=== PATIENT | male | born 1955 | race American Indian/Alaskan Native ===

== ENCOUNTER 2016-09-20 12:43 | Emergency (ER) | payer OTHER ==
[2016-09-20 13:22] LABS: Eosinophils % (Auto) 2.6 % (0.0-4.3); Hematocrit 40.4 % (35.5-45.6); Hemoglobin 13.3 gm/dl (11.8-15.2); Mean Corpuscular HGB Conc 33 % (32-34); Mean Corpuscular Hemoglobin 31 pg (28-32); Mean Corpuscular Volume 95 fl (84-94); Platelet Count 183 K/mm3 (140-440); Red Blood Count 4.27 M/mm3 (3.65-5.03); White Blood Count 5.8 K/mm3 (4.5-11.0)
[2016-09-20 13:44] LABS: Anion Gap 18 mmol/L; BUN/Creatinine Ratio 17.14; Blood Urea Nitrogen 12 mg/dL (9-20); Calcium 9.1 mg/dL (8.4-10.2); Carbon Dioxide 25 mmol/L (22-30); Glucose 158 mg/dL (75-100); Sodium 140 mmol/L (137-145)
[2016-09-20] MEDS ORDERED: TESSALON PERLES PO ONE (20:46)
[2016-09-20] MEDS ORDERED: MUCINEX ER PO ONE (20:46)
[2016-09-20] MEDS ORDERED: TORADOL IV ONE (21:14)
--- NOTE | 2016-09-20 22:11 | Emergency Department Report ---
HPI - General Chief Complaint: Chest Pain Time Seen by Provider: 09/20/16 20:46 - HPI HPI: The patient is a 61-year-old male presents for evaluation of chest pain. The patient reports chest pain for the past 3 weeks, exacerbated with coughing, moderate in severity, aching in quality, and associated with a nonproductive cough. The patient denies fever, neck pain, parasthesias, dyspnea, hemoptysis, palpitations, dizziness, syncope, unilateral leg swelling, calf muscle pain. Patient also denies cocaine or other stimulant use, history of DVT or PE, recent immobilization, or history of cancer. ED Past Medical Hx - Past Medical History Previous Medical History?: No - Surgical History Hx Appendectomy: Yes - Social History Smoking Status: Never Smoker Substance Use Type: None - Medications Home Medications: Home Medications Medication Instructions Recorded Confirmed Last Taken Type Benzonatate [Tessalon Perles] 100 mg PO Q8HR #14 capsule 09/20/16 Unknown Rx Cyclobenzaprine HCl [Flexeril 5 MG 5 mg PO Q8HR PRN #15 tab 09/20/16 Unknown Rx TAB] Doxycycline Hyclate [Doxycycline 100 mg PO Q12HR #10 tab 09/20/16 Unknown Rx Hyclate TAB] ED Review of Systems ROS: Stated complaint: CP/DIZZINESS Other details as noted in HPI Constitutional: denies: fever ENT: denies: throat or neck pain Respiratory: denies: cough, shortness of breath Cardiovascular: reports chest pain Endocrine: denies unexplained weight loss or gain Gastrointestinal: denies: abdominal pain, nausea Genitourinary: denies: dysuria Musculoskeletal: denies: leg swelling Skin: denies: rash Neurological: denies: headache Hematological/Lymphatic: denies: easy bleeding or easy bruising Psych: denies sadness or hopelessness Physical Exam - Physical Exam Vital Signs: Vital Signs 09/20/16 09/20/16 09/20/16 12:58 19:33 21:38 Temperature 97 F L 97.5 F L Pulse Rate 99 H 65 Respiratory 18 16 14 Rate Blood Pressure 137/79 134/80 Blood Pressure [Right] O2 Sat by Pulse 99 100 Oximetry 09/20/16 21:43 Temperature 98.1 F Pulse Rate 60 Respiratory 10 L Rate Blood Pressure Blood Pressure 134/89 [Right] O2 Sat by Pulse 98 Oximetry Physical Exam: General: well-nourished, well-developed, no acute distress Head: Normocephalic, atraumatic Eyes: normal sclera ENT: Mucous membranes are pale and dry, bilateral nasal congestion present Neck: No neck stiffness, no cervical adenopathy Respiratory: Breath sounds equal bilaterally, no wheezing, rales, or rhonchi Cardio: S1 and S2 present, no murmurs, rubs, gallops, capillary refill is delayed Abdomen: Normoactive bowel sounds, soft abdomen, no rigidity, no guarding or rebound tenderness Chest WALL/Back: No tenderness to palpation of the chest wall, no CVA tenderness with percussion Musc: No pitting edema Skin: No rash Neuro: no facial drooping, normal speech Psych: Normal affect ED Course Vital Signs 09/20/16 09/20/16 09/20/16 12:58 19:33 21:38 Temperature 97 F L 97.5 F L Pulse Rate 99 H 65 Respiratory 18 16 14 Rate Blood Pressure 137/79 134/80 Blood Pressure [Right] O2 Sat by Pulse 99 100 Oximetry 09/20/16 21:43 Temperature 98.1 F Pulse Rate 60 Respiratory 10 L Rate Blood Pressure Blood Pressure 134/89 [Right] O2 Sat by Pulse 98 Oximetry ED Medical Decision Making - Lab Data Result diagrams: 09/20/16 13:06 09/20/16 13:06 - Medical Decision Making The patient was seen and examined by myself. The patient is placed on a site monitor and continuous pulse ox. On initial evaluation, the patient was found to be in no distress. EKG was negative for findings suggestive of acute cardiac infarct. Labs and imaging are obtained. The patient is given IV Toradol for his pain, Tessalon Perles for cough, and Mucinex for congestion. Chest x-ray is negative for pneumothorax, focal consolidation, pulmonary vascular congestion, pleural effusion, or other obvious acute cardiopulmonary disease process. Lab results were non-concerning including levels of troponin, WBC, hemoglobin, hematocrit, electrolytes, renal function. The patient was reevaluated and reported that their symptoms were markedly improved. As the patient has a NIKOLE risk score less than 2, and a well's score less than 2, the patient is at low risk of ACS or pulmonary emboli etiology of their symptoms. The patient is stable for discharge with outpatient follow-up. The patient is given follow-up and return instructions. The patient expressed understanding and agreed with the plan. The patient is discharged in stable condition. Critical care attestation.: If time is entered above; I have spent that time in minutes in the direct care of this critically ill patient, excluding procedure time. ED Disposition Clinical Impression: Acute chest pain, Acute upper respiratory infection Disposition: DISCHARGED TO HOME OR SELFCARE Is pt being admited?: No Does the pt Need Aspirin: No Condition: Stable Instructions: Chest Pain (ED), Upper Respiratory Infection (ED) Prescriptions: Benzonatate [Tessalon Perles] 100 mg PO Q8HR #14 capsule Cyclobenzaprine HCl [Flexeril 5 MG TAB] 5 mg PO Q8HR PRN #15 tab PRN Reason: Pain Doxycycline Hyclate [Doxycycline Hyclate TAB] 100 mg PO Q12HR #10 tab Referrals: PRIMARY CARE, [Primary Care Provider] - 3-5 Days Time of Disposition: 22:08
[2016-09-21 00:38] VITALS: BP 134/76
--- NOTE | 2016-09-21 09:21 | XRay Report ---
Single view chest: History: Chest pain. Findings: Normal S. silhouette trachea is midline. No consolidation, pneumothorax or pleural effusion. Impression: No acute cardiopulmonary findings.
== END 2016-09-21 00:37 | disposition home or self-care (01) ==
LOC: ED 12:43
DX: J06.9 Acute upper respiratory infection, unspecified (principal); R07.9 Chest pain, unspecified
CPT/HCPCS: 36415; 71010; 80048; 84484; 85025; 93005; 93010; 96374; 99285; J1885

== ENCOUNTER 2016-09-25 20:24 | Emergency (ER) | payer OTHER ==
[2016-09-26] MEDS ORDERED: TETRACAINE 0.5% OU PRN (01:18)
[2016-09-26] MEDS ORDERED: FUL-GLO OP ONE (01:18)
--- NOTE | 2016-09-26 01:24 | Emergency Department Report ---
Eye Injury/Foreign Body - HPI Duration: 2 Days Eye Location: Left Severity: None Tetanus Status: Up to Date Eye Symptoms: Eye Pain: No, Blurred Vision: No, Eye Redness: No, Grinding/ Hammering Metal: No, Used Eye Protection: No, Contact Lens Use: No, Recalls Injury: No, Photophobia: No Other History: Physical 61-year-old that presents with left eye subconjunctival hematoma. Patient stated has been here last Friday and was prescribed aspirin and antibiotics. Patient is concerned that aspirin antibiotics as caused this. Patient also agrees to coughing. Patient denies any trauma to the eye. Denies any visual changes. Denies blurry vision. Denies itching or discharge. Denies irritation to the eye. Patient denies any shortness of breath or chest pain. Patient does not seem toxic or ill appearance. No signs of distress noted. Denies any drug allergies. ED Review of Systems ROS: Stated complaint: BACK PAIN/EYE REDNESS Other details as noted in HPI Constitutional: denies: chills, fever Eyes: other (left eye subconjunctival hematoma). denies: eye pain, eye discharge, vision change ENT: denies: ear pain, throat pain Respiratory: denies: cough, shortness of breath, wheezing Cardiovascular: denies: chest pain, palpitations Endocrine: no symptoms reported Gastrointestinal: denies: abdominal pain, nausea, diarrhea Genitourinary: denies: urgency, dysuria Musculoskeletal: denies: back pain, joint swelling, arthralgia Skin: denies: rash, lesions Neurological: denies: headache, weakness, paresthesias Psychiatric: denies: anxiety, depression Hematological/Lymphatic: denies: easy bleeding, easy bruising ED Past Medical Hx - Past Medical History Previous Medical History?: Yes Additional medical history: CHEST WALL MUSCLE - Surgical History Past Surgical History?: Yes Hx Appendectomy: Yes - Social History Smoking Status: Never Smoker Substance Use Type: None - Medications Home Medications: Home Medications Medication Instructions Recorded Confirmed Last Taken Type Benzonatate [Tessalon Perles] 100 mg PO Q8HR #14 capsule 09/20/16 Unknown Rx Cyclobenzaprine HCl [Flexeril 5 MG 5 mg PO Q8HR PRN #15 tab 09/20/16 Unknown Rx TAB] Doxycycline Hyclate [Doxycycline 100 mg PO Q12HR #10 tab 09/20/16 Unknown Rx Hyclate TAB] Eye Injury Exam - Exam General: Vital signs noted. No distress. Alert and acting appropriately. Left eye subconjunctival hematoma. No discharge, drainage. No pus or crusting noted. No pain. Normal pupils. PERRLA. Normal eye movement. No signs of strabismus. - Visual Acuity Bilateral Vision Acuity Degree: 20/13 Eye Exam: Neither Injection, Neither Chemosis, Neither Abnormal Pupil, Neither EOMI, Neither Eye Foreign Body, Neither Lid Foreign Body, Neither Mucous Discharge, Neither Purulent Discharge, Neither Fluorescein Uptake, Neither Fluorescein Uptake (slit lamp), Neither Cell/Flare (slit lamp), Neither Corneal Edema, Neither Photophobia Right Vision Acuity Degree: 20/13 Eye Exam: Neither Injection, Neither Chemosis, Neither Abnormal Pupil, Neither EOMI, Neither Eye Foreign Body, Neither Lid Foreign Body, Neither Mucous Discharge, Neither Purulent Discharge, Neither Fluorescein Uptake, Neither Fluorescein Uptake (slit lamp), Neither Cell/Flare (slit lamp), Neither Corneal Edema, Neither Photophobia Left Vision Acuity Degree: 20/20 ED Course Vital Signs 09/25/16 21:41 Temperature 97.6 F Pulse Rate 92 H Respiratory 18 Rate Blood Pressure 138/90 O2 Sat by Pulse 100 Oximetry ED Medical Decision Making - Medical Decision Making Ed course: 61-year-old male that presents with left eye subconjunctival hematoma 1- under Wood's lamp, I performed an assessment of the corneal for any seed cleaner abrasion. Negative for coronary abrasion left eye noted. 2- patient received tetracaine drops to the left eye during the exam with fluorescein strip. 3- I instructed to the patient that this is a subconjunctival hematoma Critical care attestation.: If time is entered above; I have spent that time in minutes in the direct care of this critically ill patient, excluding procedure time. ED Disposition Clinical Impression: Subconjunctival hematoma Qualifiers: Laterality: left Qualified Code(s): H11.32 - Conjunctival hemorrhage, left eye Disposition: DISCHARGED TO HOME OR SELFCARE Is pt being admited?: No Does the pt Need Aspirin: No Condition: Stable Additional Instructions: Please follow-up with your primary-care doctor in 3-5 days. If symptoms worsen report back to emergency room. Referrals: [facility] [Outside] - 3-5 Days [facility] [Outside] - 3-5 Days PRIMARY CARE, [Primary Care Provider] - 3-5 Days Forms: Work/School Release Form(ED)
[2016-09-26 01:35] VITALS: BP 129/82
== END 2016-09-26 01:40 | disposition home or self-care (01) ==
LOC: ED 20:24
DX: H11.32 Conjunctival hemorrhage, left eye (principal)
CPT/HCPCS: 99283

== ENCOUNTER 2020-01-20 12:04 | Emergency (ER) | payer OTHER ==
[2020-01-20 12:59] VITALS: BP 110/83
--- NOTE | 2020-01-20 14:52 | Emergency Department Report ---
Chief Complaint: Shoulder Injury Stated Complaint: POSS POISON Time Seen by Provider: 01/20/20 14:48 - HPI History of Present Illness: This is a 64-year-old male who presents the ED stating that he may have accidentally drank some bleach on his water Friday for 5 days ago. Patient states he just tasted a little bit of bleach in his water but has not had any other issues since then. Patient denies any vomiting, diarrhea, abdominal pain. Patient states he has had normal bowel movements, normal urine no other problems. Patient presents here today because he was thinking he can get some blood work - ROS Review of Systems: As noted in HPI - Exam Vital Signs: Vital Signs 01/20/20 12:54 Temperature 97.6 F Pulse Rate 76 Respiratory 18 Rate Blood Pressure 110/83 [Right] O2 Sat by Pulse 97 Oximetry Physical Exam: GENERAL: Alert and oriented x3, no apparent distress, Normal Gait, atraumatic. HEAD: Head is normocephalic and a-traumatic. ABDOMEN: No organomegaly was noted,Positive bowel sounds, soft, and non- distended. . Nontender to palpation on all Quadrants, NO CVA tenderness. SKIN: Warm and dry, No lesions, No ulceration or induration present. MSE screening note: Focused history and physical exam performed. Due to findings the following was ordered: ED Medical Decision Making - Medical Decision Making 64-year-old male who presents after ingesting some chlorine with his water for 5 days ago. Patient presents for evaluation. There is no medical emergency. Upon examination patient is fine to be discharged from triage and follow-up with primary care physician. Vital signs are normal he is in no acute distress ED Disposition for MSE Clinical Impression: Ingestion of bleach Disposition: Z-07 MED SCREENING EXAM-LEFT Is pt being admited?: No Does the pt Need Aspirin: No Condition: Stable Instructions: Food Poisoning (ED) Additional Instructions: Make sure to follow up with the primary care physician as discussed. If you have any worsening symptoms or develop new symptoms please return to ED immediately. Referrals: PRIMARY CARE, [Primary Care Provider] - 3-5 Days [facility] [Outside] - 3-5 Days [facility] [Outside] - 3-5 Days Forms: Work/School Release Form(ED) Time of Disposition: 14:52
== END 2020-01-20 18:54 | disposition left against medical advice (07) ==
LOC: ED 12:04
DX: T65.891A Toxic effect of other specified substances, accidental (unintentional), initial encounter (principal); Z53.21 Procedure and treatment not carried out due to patient leaving prior to being seen by health care provider

== ENCOUNTER 2020-06-27 08:37 | Outpatient (CLI) | payer OTHER ==
[2020-06-27 10:21] LABS: Blood Urea Nitrogen 17 mg/dL (9-20)
--- NOTE | 2020-06-27 11:39 | Cat Scan Report ---
CT abdomen pelvis wo/w con INDICATION: MALIGNANT NEOPLASM OF PROSTATE. TECHNIQUE: All CT scans at this location are performed using CT dose reduction for ALARA by means of automated e xposure control. COMPARISON: None available. FINDINGS: Lung bases are clear of acute disease. Liver, gallbladder, spleen, pancreas, kidneys and adrenals are negative. Abdominal aorta is normal in size. No adenopathy. Pelvis Prostate is mildly enlarged, with somewhat irregular borders. No pelvic adenopathy. Urinary bladder a ppears negative. No significant skeletal lesions. IMPRESSION: 1. No evidence of metastasis or other acute abnormality. Signer Name: Ankit Nettles MD Signed: 06/27/2020 11:35 AM Workstation Name: [id number]
--- NOTE | 2020-06-27 14:08 | Nuclear Medicine Report ---
NM bone scan whole body INDICATION / CLINICAL INFORMATION: PELVIC PAIN. TECHNIQUE: Dose / Agent / Route: 25.5 mCi technetium MDP, IV COMPARISON: No relevant prior imaging study available. FINDINGS: Degenerative changes in the cervical and lumbar spine. No evidence of skeletal metastasis. IMPRESSION: 1. Negative for skeletal metastases. Signer Name: Ankit Nettles MD Signed: 06/27/2020 2:03 PM Workstation Name: [id number]
== END 2020-06-27 08:38 | disposition home or self-care (01) ==
LOC: NM 08:37
PROVIDERS: ATTEND Urology
DX: C61 Malignant neoplasm of prostate (principal); M47.812 Spondylosis without myelopathy or radiculopathy, cervical region; N40.0 Benign prostatic hyperplasia without lower urinary tract symptoms; R10.2 Pelvic and perineal pain
CPT/HCPCS: 36415; 74178; 78306; 82565; 84520; A9503; Q9967